=== PATIENT | female | born 1975 | race Caucasian/White ===

== ENCOUNTER 2022-02-27 08:49 | Emergency (ER) | payer OTHER, BC, SELFPAY ==
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
[2022-02-27 09:15] LABS: Basophils Absolute Auto 0.02 K/uL (0.00-0.30); Basophils Percent Auto 0.2 % (0.0-3.0); Eosinophils Absolute Auto 0.33 K/uL (0.00-0.50); Hematocrit 43.3 % (33.0-51.0); Hemoglobin* 13.9 gm/dL (12.0-16.0); Immature Granulocytes Abs Auto 0.02 K/uL (0.00-0.30); Lymphocytes Absolute Auto 2.12 K/uL (0.90-2.90); Lymphocytes Percent Auto 25.6 % (20-44); Mean Corpuscular HGB Conc 32 gm/dL (32-36); Mean Corpuscular Hemoglobin 27 pg (26-34); Mean Corpuscular Volume 84 fL (80-100); Monocytes Percent Auto 4.6 % (0.0-11.0); Neutrophils Percent Auto 65.4 % (42.0-72.0); Platelet Count* 267 K/uL (140-440); RDW Coefficient of Variation % 15.1 % (11.5-15.5); Red Blood Count 5.17 m/uL (4.00-5.20); White Blood Count* 8.27 K/uL (4.50-11.00)
[2022-02-27 09:30] LABS: Slide Review Reflex No
[2022-02-27 09:32] LABS: Chloride* 104 mmol/L (96-114); Potassium* 4.4 mmol/L (3.6-5.1); Sodium* 138 mmol/L (135-149)
[2022-02-27 09:35] LABS: Blood Urea Nitrogen* 13 mg/dL (5-24); Calcium* 9.4 mg/dL (8.4-10.6); Carbon Dioxide* 27 mmol/L (20-32); Creatinine* 0.6 mg/dL (0.5-1.5); Estimated Glomerular Filt Rate 113 ml/min; Glucose* 122 mg/dL (60-115)
[2022-02-27] MEDS: ACETAMINOPHEN 500 MG TABLET 1000 MG PO (09:40)
--- OUTSIDE RECORDS SUMMARY | 2022-02-27 09:54 | XMS_ITS | Clinical Summary ---
:1975 Author Organization [facility] [place] [address] Care Team Providers Name Role Phone Karo Gee MEDICAID ANALYST Primary Care Provider Unavailable Allergies Active Allergy Reactions Severity Noted Date Comments Insect Venom Anaphylaxis High 07/18/2016 Bee stings Sulfa (Sulfonamide Antibiotics) Rash Medications Medication Sig Dispensed Refills Start Date End Date Status TYLENOL EXTRA take 2 tablets 0 03/31/2008 Active STRENGTH 500 MG TAB (1,000 mg) by oral route every 6 hours as needed ibuprofen (ADVIL; Take 1 tablet by 0 04/17/2010 Active MOTRIN) 200 mg tablet mouth 4 times daily if needed. buPROPion (WELLBUTRIN Take 1 tablet by 0 06/05/2016 Active SR) 150 mg mouth 2 times Sustained-Release daily. tablet EPINEPHrine (EPIPEN) Inject 0.3 mg 0 Active 0.3 mg/0.3 mL intramuscular one injection time if needed for Allergic Reaction. levonorgestrel Inject 1 Device 0 Active intrauterine device intrauterine one (MIRENA) 20 mcg/24 hr time. (5 years) IUD ESOMEPRAZOLE Take by mouth. 0 Ac tive MAGNESIUM (NEXIUM ORAL) docusate (Colace) 100 Take 1 Capsule (100 20 Capsule 0 021 Active mg mg) by mouth 2 capsuleIndications: times daily if Pectoralis minor needed for syndrome (HC) Constipation. hydrOXYzine HCL Take 1 Tablet (25 40 Tablet 0 11/02/2020 Active (ATARAX) 25 mg mg) by mouth 4 tabletIndications: times daily if Pectoralis minor needed. syndrome (HC) oxyCODONE-acetaminoph Take 1-2 Tablets by 40 Tablet 0 11/03/19 21 Active en (Percocet) 5-325 mouth every 4 hours mg per if needed for Pain. tabletIndications: Maximum of 10 Pectoralis minor tablets per day syndrome (HC) HYDROcodone-acetamino Take 1 tablet by 8 Tablet 0 11/10/2020 Active phen (NORCO) 5-325 mg mouth at bedtime, per as needed for pain. tabletIndications: Max acetaminophen Surgical aftercare, dose: 4000 mg in 24 musculoskeletal hrs. system ondansetron (ZOFRAN Place 1 Tablet (4 16 Tablet 0 11/10/2020 Active ODT) 4 mg mg) on the tongue disintegrating every 8 hours if tabletIndications: needed for Surgical aftercare, Nausea/Vomiting. musculoskeletal system traMADoL (ULTRAM) 50 Take 1 Tablet (50 21 Tablet 0 02/16/2021 Active mg tabletIndications: mg) by mouth 3 Surgical aftercare, times daily if musculoskeletal needed for Pain. system Active Problems Problem Noted Date s/p right shoulder arthroscopic pectoralis minor tenot david, subacromial 12/20/2020 decompression, distal clavicle excision, DOS: 10/31/[address] 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 Filiberto cortez at [place] Tobacco use disorder 03/31/2008 Obesity, unspecified 03/30/2008 Acute cholecystitis 03/30/2008 Encounters Date Type Specialty Care Team Description 01/18/2022 Orders Only Marty Estrada 1 scan : (1-Ord) [place] ELBERT BAL MD from Last 3 Months Immunizations Name Administration Dates Next Due DTP 09/26/1979, 01/25/1978, 1975, 05[birth year]1977 MMR 12/18/1994, 11/24/1978 Oral Polio Vaccine 09/26/1979, 01/25/1978, 1977, 05/1977 Td (Age >=7 Years) 11/27/2003 Family History Medical History Relation Name Comments Diabetes Father Hyperlipidemia Mother Hypertension Mother Relation Name Status Comments Father Mother Social History Tobacco Use Types Packs/Day Years Used Date Former Smoker Cigarettes 1 Quit: 2011 Smokeless Tobacco: Never Used Tobacco Cessation: Counseling Given: Yes Alcohol Use Standard Drinks/Week Comments Yes 0 (1 standard drink = 0.6 oz pure alcoho l) maybe once/month Alcohol Habits Answer Date Recorded How often do you have a drink containing alcohol? Not asked How many drinks containing alcohol do you have on a Not aske d typical day when you are drinking? How often do you have six or more drinks on one Not asked occasion? Comment: maybe once/month 03/31/2008 Sex Assigned at Date Recorded Not on file Obstetrics History Last Filed Vital Signs Vital Sign Reading Time Taken Comments Blood Pressure 109/69 11/06/2016 1:24 PM CDT Pulse 86 11/06/2016 1:24 PM CDT Temperature 36.8 ??C (98.3 ??F) 07/25/2016 10:09 AM [employer] Respiratory Rate 16 07/23/2016 6:30 PM [employer] Oxygen Saturation 98% 11/06/2016 1:24 PM CDT Inhaled Oxygen Concentration - - Weight 115.7 kg (255 lb) 11/06/2016 1:24 PM CDT Height 172.7 cm (5' 8) 07/23/2016 11:35 AM [employer] Body Mass Index 38.77 07/23/2016 11:35 AM [employer] Plan of Treatment Health Maintenance Due Date Last Done Comments COVID-19 vaccine series (#1) 02/14/1978 Tdap 1988 Depression screening for age 12+ 1989 BMI (ht and wt on same day) for age 18+ 08/15/1995 Hepatitis C screening for age 18-79 08/15/1995 Pap test for age 21-65 1998 Tetanus booster 11/26/2013 11/27/2003 Influenza for age 9-49 01/25/2022 Medical Devices Implanted Type Area Analyst Device Shelf Model / Identifier Expiration Date Ser ial / Lot [id number] - [id number] Left: Deposit [phone] / Implanted: Qty: 1 on 07/23/2016 by Jose Walls DPM at [facility] [employer] / Description: Locking screw T7 2.7 x 22mm Procedures Procedure Name Priority Date/Time Associated Diagnosis Comme nts EMG Routine 12/21/2021 12:00 AM Weakness of right Res ults for this CDT hand procedure are i n the results section . from Last 3 Months Results EMG (12/21/2021 12:00 AM CDT) Narrative This result has an attachment that is no t available. Marty Estrada III, MD NEUROLOGY ORD from Last 3 Months Insurance Payer Benefit Plan / Subscriber ID Effective Dates Phone Addre ss Type Group WC [employer] [place] [id number] 2018-Pres [address] [facility] [address] [place] [address] [employer] [id number] 2021-Prese [id number] [place] [address] (Work) Advance Directives Latest Code Status on File Code Status Date Activated Date Inactivated Comments Full Code 07/23/2016 1:00 PM 07/23/2016 9:03 PM Code Status Discussion: Not Discussed Full Code 07/23/2016 11:21 AM 07/23/2016 1:00 PM Code Status Discussion: Not Discussed Care Teams Specification Writer Relationship Specialty Start Date End Date Karo Gee NP PCP - General Emergency Medicine 07/13/16 [id number] [place] [address]
[2022-02-27] MEDS: 0.9 % SODIUM CHLORIDE 1000 ml 1,000 ML IV (09:56)
[2022-02-27 10:05] VITALS: BP 128/82; PULSE 78; RESP 18; TEMP 36.5; O2SAT 98; BMI 39.9
[2022-02-27 10:06] LABS: Appearance Urine Slightly Cloudy (Clear); Bilirubin Urine Negative (Negative); Blood Urine Negative (Negative); Color Urine Yellow (Yellow); Glucose Urine Negative (Negative); Ketones Urine Negative (Negative); Leukocyte Esterase Urine Negative (Negative); Nitrite Urine Negative (Negative); Protein Urine Negative (Negative); Specific Gravity Urine 1.015 (1.000-1.030); Urobilinogen Urine 0.2 (0.2-1.0)
[2022-02-27 10:17] LABS: Bacteria Urine Moderate; RBC Urine 0-2 (0-2); Squamous Epithelial Cell Urine Few (None-Few); WBC Urine 0-2 (0-5)
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
== END 2022-02-27 10:30 | disposition home or self-care (01) ==
PROVIDERS: Emergency Provider Family Medicine; PCP Nurse Practitioner Family
DX: M54.2 Cervicalgia (principal); M25.511 Pain in right shoulder; V53.5XXA Driver of pick-up truck or van injured in collision with car, pick-up truck or van in traffic accident, initial encounter
CPT/HCPCS: 36415; 70450; 71260; 72125; 74177; 80048; 81001; 85025; 87086; 93005; 99285; 99291; A9270; G0390; J7030; Q9967

== ENCOUNTER 2022-05-04 08:34 | Outpatient (CLI) | payer BC, SELFPAY ==
--- OUTSIDE RECORDS SUMMARY | 2022-05-04 08:36 | XMS_ITS | Clinical Summary ---
:1975 Author Organization [employer] [facility] [place] [address] Care Team Providers Name Role Phone Karo Gee CAR SALES REPRESENTATIVE Primary Care Provider Unavailable Allergies Active Allergy [...] DOS: 07/02/[address] 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 Plan of Treatment Health Maintenance Due Date Last Done Comments COVID-19 vaccine series (#1) 02/14/1978 Tdap 1988 Depression screening for age 12+ 1989 HIV for age 15-65 1992 BMI (ht and wt on same day) for age 18+ 08/15/1995 Hepatitis C screening for age 18-79 08/15/1995 Pap test for age 21-65 1998 Tetanus booster 11/26/2013 11/27/2003 Influenza for age 9-49 01/25/2022 Medical Devices Implanted Type Area Tobacco Sizer Device Shelf Model / Identifier Expiration Date Ser ial / Lot [id number] - [id number] Left: [place] [id number] / Implanted: Qty: 1 on 07/23/2016 by Jose Walls DPM at [facility] / Description: Locking screw T7 2.7 x 22mm Results Not on filefrom Last 3 Months Insurance Payer Benefit Plan / Subscriber ID Effective Dates Phone Addre ss Type Group [employer] [place] [id number] [address] [place] [address] BLUE [employer]OSS [employer] OF [id number] 2021-[place] [id number] [facility] [place] [phone] (Work) Advance Directives Latest Code Status on File Code Status Date Activated Date Inactivated Comments Full Code 07/23/2016 1:00 PM 07/23/2016 9:03 PM Code Status Discussion: Not Discussed Full Code 07/23/2016 11:21 AM 07/23/2016 1:00 PM Code Status Discussion: Not Discussed Care Teams Quick Print Operator Relationship Specialty Start Date End Date Karo Gee CAR SALES REPRESENTATIVE PCP - General Emergency Medicine 07/13/[address] [place] [address]
--- NOTE | 2022-05-04 08:45 | CRLHL7_ITS ---
For Patients: As a result of the Cures Act, medical imaging exams and procedure reports are released immediately into your electronic medical record. You may view this report before your referring provider. If you have questions, please contact your health care provider. DIGITAL DIAGNOSTIC BILATERAL MAMMOGRAM USING TOMOSYNTHESIS AND COMPUTER-AIDED DETECTION CLINICAL HISTORY: LEFT breast six-month follow-up. COMPARISON: 10/27/2021, 04/24/2021, 04/14/2021. TECHNIQUE: Digital BILATERAL mammogram in four projections. Tomosynthesis and CAD utilized. BREAST COMPOSITION: There are areas of scattered fibroglandular density. FINDINGS: 3D CC/MLO BILATERAL mammograms submitted. Normal fibroglandular tissue. No suspicious masses or architectural distortion. No adenopathy or suspicious calcifications. IMPRESSION: Normal BILATERAL mammograms. No evidence of malignancy. RECOMMENDATIONS: Annual BILATERAL screening mammography. Results and recommendations discussed with the patient. BI-RADS Category 2: Benign A lay language report of this examination will be provided to the patient. Dictated by Diaz Fatima MD @ 05/04/2022 12:12:08 PM [email or web address]/Dictated by: Diaz Fatima MD @ 05/04/2022 12:12:00 PM (Electronically Signed)
== END 2022-05-04 08:35 | disposition home or self-care (01) ==
PROVIDERS: PCP Nurse Practitioner Family; Visit Provider Nurse Practitioner Family
DX: R92.8 Other abnormal and inconclusive findings on diagnostic imaging of breast (principal)
CPT/HCPCS: 77066; G0279

== ENCOUNTER 2022-12-21 08:36 | Outpatient (CLI) | payer BC, SELFPAY | END 2022-12-21 08:37 | disposition home or self-care (01) | PROVIDERS: PCP Nurse Practitioner Family; Visit Provider Nurse Practitioner Family | DX: E78.5 Hyperlipidemia, unspecified (principal); E11.9 Type 2 diabetes mellitus without complications; R53.83 Other fatigue; E66.9 Obesity, unspecified; E66.01 Morbid (severe) obesity due to excess calories | CPT/HCPCS: 80053; 80061; 84443 ==

== ENCOUNTER 2023-01-06 18:41 | Outpatient (CLI) | payer BC, SELFPAY ==
--- NOTE | 2023-01-23 10:20 | W.PM.SLEEP ---
Sleep Study Details Details Interpreting Provider: Subhash Date of Sleep Study: 01/06/23 Sleep Study Details: STUDY TYPE:? Home unattended ? BMI:? 44.1 ORDERING PROVIDER:Napoleon Gee INDICATION:? Concerns about sleep apnea ? SLEEP SUMMARY:? 522.5 minutes monitored RESPIRATORY SUMMARY:? AHI 32.5, supine 38.4, left and right lateral approximately 22 Low oxygen 79 70.1% of study oxygen less than 90% Snoring 35.6% PERIODIC LIMB MOVEMENTS OF SLEEP:? Not recorded during home study CARDIAC:? Ranged 61-92, mean 72.8 IMPRESSION:? Severe obstructive sleep apnea with supine position dependency and significant hypo oxygenation. RECOMMENDATION: AutoSet CPAP with close follow-up including pulse oximetry once effective therapy is established. Further cardiopulmonary evaluation may be indicated because of low oxygen saturations.
== END 2023-01-06 18:42 | disposition home or self-care (01) ==
LOC: SLEEP 18:42
PROVIDERS: PCP Nurse Practitioner Family; Visit Provider Nurse Practitioner Family
DX: G47.33 Obstructive sleep apnea (adult) (pediatric) (principal)
CPT/HCPCS: 95806

== ENCOUNTER 2023-02-26 14:34 | Outpatient (CLI) | payer BC, SELFPAY | END 2023-02-26 14:35 | disposition home or self-care (01) | LOC: LKVREF 14:34 | PROVIDERS: PCP Nurse Practitioner Family; Visit Provider Otolaryngology | DX: G25.81 Restless legs syndrome (principal) | CPT/HCPCS: 82728 ==

== ENCOUNTER 2023-03-08 08:36 | Outpatient (CLI) | payer OTHER, SELFPAY ==
--- NOTE | 2023-03-08 09:00 | CRLHL7_ITS ---
For Patients: As a result of the Cures Act, medical imaging exams and procedure reports are released immediately into your electronic medical record. You may view this report before your referring provider. If you have questions, please contact your health care provider. Indication: Neck stiffness. Migraine. Technique: CT of the cervical spine performed without IV contrast. Comparison: CT cervical spine 02/27/2022. Findings: The cervical vertebral body heights are maintained without evidence of fracture. Disc space heights demonstrate mild narrowing. Moderate reversal of the cervical lordosis. C2-3: No spinal canal or neural foraminal narrowing. C3-4: No spinal canal or neural foraminal narrowing. C4-5: No spinal canal or neural foraminal narrowing. C5-6: No spinal canal or neural foraminal narrowing. C6-7: No spinal canal or neural foraminal narrowing. C7-T1: No spinal canal or neural foraminal narrowing. The visualized lung apices are clear. No prevertebral soft tissue swelling. Impression: 1. No fracture. 2. Moderate reversal of the cervical lordosis. 3. No spinal canal or neural foraminal stenosis. Please note that all CT scans at this facility use dose modulation, iterative reconstruction, and/or weight-based dosing when appropriate to reduce radiation dose to as low as reasonably achievable. Dictated by Irineo Nicolas MD @ 03/08/2023 3:34:08 PM (Electronically Signed)
== END 2023-03-08 08:37 | disposition home or self-care (01) ==
LOC: CT 08:37
PROVIDERS: PCP Nurse Practitioner Family; Visit Provider Nurse Practitioner Family
DX: G43.909 Migraine, unspecified, not intractable, without status migrainosus (principal); M40.50 Lordosis, unspecified, site unspecified; M54.2 Cervicalgia; V89.2XXA Person injured in unspecified motor-vehicle accident, traffic, initial encounter
CPT/HCPCS: 72125

== ENCOUNTER 2023-03-29 08:31 | Outpatient (CLI) | payer BC, SELFPAY | END 2023-03-29 08:32 | disposition home or self-care (01) | LOC: KYNREF 08:31 | PROVIDERS: PCP Nurse Practitioner Family; Visit Provider Nurse Practitioner Family | DX: E78.5 Hyperlipidemia, unspecified (principal); E11.9 Type 2 diabetes mellitus without complications | CPT/HCPCS: 80061 ==

== ENCOUNTER 2023-05-01 16:30 | Emergency (ER) | payer BC, SELFPAY ==
[2023-05-01 16:38] VITALS: BP 105/71; PULSE 90; RESP 18; TEMP 36.2; O2SAT 97; BMI 39.0
--- NOTE | 2023-05-01 19:00 | CRLHL7_ITS ---
For Patients: As a result of the Century Cures Act, medical imaging exams and procedure reports are released immediately into your electronic medical record. You may view this report before your referring provider. If you have questions, please contact your health care provider. INDICATION: Left-sided abdominal pain TECHNIQUE: CT abdomen and pelvis acquired with i.v. 130 mL Isovue 370. Coronal and sagittal reformats were obtained. COMPARISON: CT study dated 07/29/2019, 02/27/2022 FINDINGS: Electronics Mechanic Apprentice CT images: Nonobstructive bowel gas pattern. Lower chest: Unremarkable. Liver: Unremarkable. Spleen: Unremarkable. Pancreas: Unremarkable. Gallbladder and bile ducts: Gallbladder surgically absent. Kidneys: Unremarkable. No kidney or ureteral stones and no hydronephrosis seen. Adrenal glands: Stable appearance of bilateral adrenal nodules. GI tract: Stomach and duodenum normal in caliber. Duodenum crosses midline. Bowel loops are normal in caliber. Terminal ileum and appendix normal, well visualized in the right lower quadrant. Colonic diverticulosis with no imaging evidence of acute diverticulitis. No interloop ascites or mesenteric fat stranding. Vascular: Unremarkable. Lymph nodes: Unremarkable. Miscellaneous: Unremarkable. No pneumoperitoneum is seen. No significant ascites is noted. Pelvic Organs: Satisfactory positioning of IUD within the endometrial canal. Bones: Unremarkable for age. IMPRESSION: 1. No acute abnormality identified. No imaging correlate to explain patient`s clinical symptoms of left-sided abdominal pain. Colonic diverticulosis with no imaging evidence of acute diverticulitis. 2. Stable bilateral adrenal nodules. Dictated by Anselmo Bender MD @ 05/01/2023 8:36:13 PM Please note that all CT scans at this facility use dose modulation, iterative reconstruction, and/or weight-based dosing when appropriate to reduce radiation dose to as low as reasonably achievable. Dictated by: Anselmo Bender MD @ 05/01/2023 20:36:18 (Electronically Signed)
--- NOTE | 2023-05-01 19:01 | ED.ABDPAIN ---
HPI - Abdominal Pain General Chief Complaint: Abdominal Pain Stated Complaint: vomiting, diarrhea Time Seen by Provider: 05/01/23 18:37 History of Present Illness HPI narrative: This 47-year-old female comes in reporting left-sided abdominal pain this located in the upper left abdomen and left flank. She states that this started about 5 hours prior to arrival. She states that it is a rather constant pain but the pain has eased recently. She had some associated nausea and diarrhea. She does not report any fevers or dysuria symptoms. She states that she has a history of diverticulitis but states that this does not feel exactly the same. She does not have any personal history of kidney stones but states there is a family history of them. Related Data Home Medications Medication Instructions Recorded Confirmed levonorgestrel 21 mcg/24 hours (8 1 device intrauterine ONCE 02/09/22 04/23/23 yrs) 52 mg intrauterine device (Mirena) omeprazole 20 mg capsule,delayed 20 mg PO DAILY 02/09/22 04/23/23 release Previous Rx's Medication Instructions Recorded sumatriptan succinate 100 mg See Rx Instructions PO .COMPLEX 30 12/21/22 tablet (Imitrex) days #9 tabs atorvastatin 20 mg tablet (Lipitor) 20 mg PO QHS 90 days #90 tabs 12/25/22 blood sugar diagnostic (Accu-Chek #100 ea 12/25/22 Lizette Plus test strips) blood-glucose meter (Accu-Chek #1 ea 12/25/22 Lizette Plus Meter) lancets (Accu-Chek Fastclix Lancet #100 ea 12/25/22 Drum) lisinopril 2.5 mg tablet 2.5 mg PO QDAY 90 days #90 tabs 12/25/22 metformin 500 mg tablet,extended 500 mg PO QDAY 90 days #90 tabs 12/25/22 release 24 hr cyclobenzaprine 5 mg tablet 5 mg PO TID PRN muscle spasm #30 03/01/23 tabs citalopram 40 mg tablet 40 mg PO QDAY 90 days #90 tabs 03/14/23 fjjsbbfe-aycqtuggf-ckqafugsf 3.5 4 drp otic (ear) Q8H 10 days #10 mL 03/29/23 mg-10,000 unit/mL-1 % ear drops,susp tirzepatide 7.5 mg/0.5 mL 7.5 mg (0.5 mL) subcut QWEEK 90 03/29/23 subcutaneous pen injector days #6.5 mL atorvastatin 40 mg tablet (Lipitor) 40 mg PO QHS #90 tabs 04/01/23 Allergies Allergy/AdvReac Type Severity Reaction Status Date / Time Sulfa (Sulfonamide Allergy Verified 04/23/23 14:43 Antibiotics) venom-honey bee Allergy Verified 04/23/23 14:43 Review of Systems Status of ROS Reports: 10 or more systems reviewed and unremarkable except as noted in History and below Narrative Constitutional: No fevers, no weight gain or loss. Eyes: No discharge. No vision changes. HENT: No congestion, no sore throat, no ear pain. Cardiovascular: No chest pain, no palpitations. Respiratory: No shortness of breath, no wheezes, no cough. Gastrointestinal: Abdominal pain and diarrhea as described above. Genitourinary: No dysuria, no hematuria. Musculoskeletal: Normal range of motion. Skin: No rashes, no pruritis. Neurological: No dizziness, weakness, sensory change, speech change. Endo/Heme/Allergies: No bruising or bleeding. No polydipsia. Pysch: no suicidality, no anxiety, no insomnia. All other systems reviewed and are negative. [facility] Medical History (Updated 05/01/23 @ 20:47 by Jared Streeter MD) Strep pharyngitis ?J02.0 - Streptococcal pharyngitis (ICD-10) Bronchitis ?J40 - Bronchitis, not specified as acute or chronic (ICD-10) Gestational diabetes ?O24.419 - Gestational diabetes mellitus in , unspecified control (ICD-10) Obesity ?E66.9 - Obesity, unspecified (ICD-10) Varicella ?B01.9 - Varicella without complication (ICD-10) Posttraumatic stress disorder ?F43.10 - Post-traumatic stress disorder, unspecified (ICD-10) History of gestational diabetes mellitus (GDM) ?Z86.32 - Personal history of gestational diabetes (ICD-10) Gastroesophageal reflux disease ?K21.9 - Gastro-esophageal reflux disease without esophagitis (ICD-10) Diverticulitis ?K57.92 - Diverticulitis of intestine, part unspecified, without perforation or abscess without bleeding (ICD-10) Depression ?F32.A - Depression, unspecified (ICD-10) Surgical History (Updated 09/28/22 @ 08:42 by Karo Gee APRN, PINSETTER MECHANIC HELPER) H/O eye surgery ?Z98.890 - Other specified postprocedural states (ICD-10) History of tonsillectomy ?Z90.89 - Acquired absence of other organs (ICD-10) History of repair of right rotator cuff ?Z98.890 - Other specified postprocedural states (ICD-10) History of joint replacement ?Z96.60 - Presence of unspecified orthopedic joint implant (ICD-10) History of hand surgery ?Z98.890 - Other specified postprocedural states (ICD-10) History of foot surgery ?Z98.890 - Other specified postprocedural states (ICD-10) History of cholecystectomy ?Z90.49 - Acquired absence of other specified parts of digestive tract (ICD-10) History of section ?Z98.891 - History of uterine scar from previous surgery (ICD-10) History of carpal tunnel surgery of right wrist ?Z98.890 - Other specified postprocedural states (ICD-10) History of bunionectomy ?Z98.890 - Other specified postprocedural states (ICD-10) Family History (Updated 08/10/22 @ 08:49 by Karo Gee APRN, PINSETTER MECHANIC HELPER) Father Glaucoma Heart disease Kidney disease Diabetes Brother Heart disease Mother Hyperlipidemia High blood pressure Breast cancer Maternal Grandmother Lung cancer Smoker Social History (Updated 08/10/22 @ 08:50 by Karo Gee APRN, PINSETTER MECHANIC HELPER) Narrative: . One child. No illicit drugs. No smoking. Alcohol rare. Work for [employer]. Smoking Status: Unknown if ever smoked Do you use any of these nicotine containing products: None How often do you have a drink containing alcohol: monthly or less How often do you have six or more drinks on one occasion: Never AUDIT-C Alcohol total score: 1 Non-prescribed substance use: denies use Little interest or pleasure in doing things: several days Feeling down, depressed, or hopeless: several days Exam Narrative: Exam Narrative: Constitutional: Well-developed, well-nourished, no acute distress. HEENT: Normocephalic, atraumatic. Neck: Normal range of motion. Nontender. Supple. Heart: Regular. No murmurs. Normal rate. Intact distal pulses. Lungs: Clear to auscultation. No chest discomfort. No wheezes, rhonchi, or rales. Abdomen: Left-sided abdominal pain that is diffuse. No rebound tenderness. Bowel sounds are normal. Genitalia: Deferred. Back: No midline tenderness. Normal range of motion. Extremities: Normal range of motion. No injury. Skin: Intact. No rash. Warm. No erythema or pallor. Neurologic: No altered sensation. No weakness. Alert and oriented. Psychiatric: No suicidality. No anxiety or depression. No insomnia. Nursing notes and vitals signs are reviewed. Const: Vital Signs, click to edit/add: Vital Signs - 24 hr 05/01/23 16:38 Temperature 97.1 F L Pulse Rate [Pulse Oximeter] 90 Respiratory Rate 18 Blood Pressure [Ri ght Upper Arm] 105/71 Pulse Oximetry 97 Oxygen Delivery Me thod Room Air Course Vital Signs Vital signs: Initial Vital Signs Temperature 97.1 F L 05/01/23 16:38 Temperature Source Temporal Artery Scan 05/01/23 16:38 Pulse Rate 90 05/01/23 16:38 Respiratory Rate 18 05/01/23 16:38 Blood Pressure 105/71 05/01/23 16:38 Blood Pressure Mean 82 05/01/23 16:38 Pulse Oximetry 97 05/01/23 16:38 Oxygen Delivery Method Room Air 05/01/23 16:38 Vital Signs Temperature 97.1 F L 05/01/23 16:38 Pulse Rate 90 05/01/23 16:38 Respiratory Rate 18 05/01/23 16:38 Blood Pressure 105/71 05/01/23 16:38 Pulse Oximetry 97 05/01/23 16:38 Oxygen Delivery Method Room Air 05/01/23 16:38 Temperature 97.1 F L 05/01/23 16:38 Pulse Rate 90 05/01/23 16:38 Respiratory Rate 18 05/01/23 16:38 Blood Pressure 105/71 05/01/23 16:38 Pulse Oximetry 97 05/01/23 16:38 Oxygen Delivery Method Room Air 05/01/23 16:38 MDM - Abdominal Pain MDM Narrative Medical decision making narrative: This patient comes in with abdominal pain, nausea, vomiting, and diarrhea as described above. She states that she is feeling better and her pain has diminished. She does report a history of diverticulitis and would like to have a CT scan to rule out something more serious. An IV was established and labs are acquired. Her white count is a bit elevated at around 14,000 but she has normal vital signs. Additionally her CT imaging shows no acute findings to explain her symptoms. It seems that she may be encountering a gastroenteritis. She is okay to be discharged home and received a prescription for Zofran. Lab Data Labs: Lab Results 05/01/23 Range/Units 19:15 WBC 14.83 H (4.50-11.00) K/uL RBC 5.70 H (4.00-5.20) m/uL Hgb 15.5 (12.0-16.0) gm/dL Hct 48.6 (33.0-51.0) % MCV 85 (80-100) fL MCH 27 (26-34) pg MCHC 32 (32-36) gm/dL RDW Coeff of Clover 14.8 (11.5-15.5) % Plt Count 331 (140-440) K/uL Neut % (Auto) 85.3 H (42.0-72.0) % Lymph % (Auto) 8.8 L (20-44) % Ogle % (Auto) 3.3 (0.0-11.0) % Eos % (Auto) 2.4 (0.0-7.0) % Baso % (Auto) 0.1 (0.0-3.0) % Neut # (Auto) 12.60 H (1.7-7.0) K/uL Lymph # (Auto) 1.30 (0.90-2.90) K/uL Ogle # (Auto) 0.50 (0.00-0.90) K/UL Eos # (Auto) 0.40 (0.00-0.50) K/uL Baso # (Auto) 0.00 (0.00-0.30) K/uL Abs Immat Gran (auto) 0.00 (0.00-0.30) K/uL Imm/Tot Granulo (auto) 0.1 % Sodium 140 (135-149) mmol/L Potassium 3.9 (3.6-5.1) mmol/L Chloride 107 (96-114) mmol/L Carbon Dioxide 25 (20-32) mmol/L Anion Gap 8 (7-15) mEq/L BUN 18 (5-24) mg/dL Creatinine 0.7 (0.5-1.5) mg/dL Estimated Creat Clear 106.06 Estimated GFR 109 ml/min Glucose 104 (60-115) mg/dL Calcium 9.5 (8.4-10.6) mg/dL Imaging Data CT scan - abdomen: Radiologist's impression: 1. No acute abnormality identified. No imaging correlate to explain patient`s clinical symptoms of left-sided abdominal pain. Colonic diverticulosis with no imaging evidence of acute diverticulitis. 2. Stable bilateral adrenal nodules. Discharge Plan Discharge Clinical Impression: Gastroenteritis Patient Disposition: Home, Self-Care Condition: Stable Additional Instructions: Take medication as needed and directed. Frequent sips of fluids. Increase diet as tolerated. Prescriptions: No Action omeprazole 20 mg capsule,delayed release(DR/EC) 20 mg PO DAILY Mirena 20 mcg/24 hours (7 yrs) 52 mg intrauterine device 1 device intrauterine ONCE Rx Instructions: as a single dose cyclobenzaprine 5 mg tablet 5 mg PO TID PRN (Reason: muscle spasm) Qty: 30 1RF sumatriptan succinate [Imitrex] 100 mg tablet See Rx Instructions PO .COMPLEX 30 Days Qty: 9 11RF Rx Instructions: take 1 tab at onset of headache; if no relief, may repeat 1 tab after at least 2 hrs; max = 2 tabs/24 hrs PO (DME) blood-glucose meter [Accu-Chek Lizette Plus Meter] Misc See Rx Instructions .Route Qty: 1 0RF Rx Instructions: once daily (DME) lancets [Accu-Chek Fastclix Lancet Drum] Misc See Rx Instructions .Route Qty: 100 6RF Rx Instructions: daily (DME) Accu-Chek Lizette Plus test strp Strip See Rx Instructions .Route Qty: 100 6RF Rx Instructions: daily atorvastatin [Lipitor] 20 mg tablet 20 mg PO QHS 90 Days Qty: 90 3RF metformin 500 mg tablet extended release 24 hr 500 mg PO QDAY 90 Days Qty: 90 3RF lisinopril 2.5 mg tablet 2.5 mg PO QDAY 90 Days Qty: 90 3RF tirzepatide 7.5 mg/0.5 mL pen injector 7.5 mg subcut QWEEK 90 Days Qty: 6.5 3RF csgsnizg-sswhearlc-QM 3.5-10,000-1 mg/mL-unit/mL-% drops,suspension 4 drp otic (ear) Q8H 10 Days Qty: 10 1RF citalopram 40 mg tablet 40 mg PO QDAY 90 Days Qty: 90 0RF atorvastatin [Lipitor] 40 mg tablet 40 mg PO QHS Qty: 90 3RF Follow Up/Referrals: Karo Gee, ELECTRICAL INTERN, PINSETTER MECHANIC HELPER [Primary Care Provider] - Stand Alone Forms: MyHealth Info Instructions
[2023-05-01 19:22] LABS: Basophils Percent Auto 0.1 % (0.0-3.0); Eosinophils Percent Auto 2.4 % (0.0-7.0); Hematocrit 48.6 % (33.0-51.0); Hemoglobin* 15.5 gm/dL (12.0-16.0); Immature Granulocytes Pct Auto 0.1 %; Lymphocytes Percent Auto 8.8 % (20-44); Mean Corpuscular HGB Conc 32 gm/dL (32-36); Mean Corpuscular Hemoglobin 27 pg (26-34); Mean Corpuscular Volume 85 fL (80-100); Monocytes Percent Auto 3.3 % (0.0-11.0); Neutrophils Percent Auto 85.3 % (42.0-72.0); Platelet Count* 331 K/uL (140-440); RDW Coefficient of Variation % 14.8 % (11.5-15.5); White Blood Count* 14.83 K/uL (4.50-11.00)
[2023-05-01 19:23] LABS: Slide Review Reflex No
[2023-05-01 19:37] LABS: Chloride* 107 mmol/L (96-114); Potassium* 3.9 mmol/L (3.6-5.1); Sodium* 140 mmol/L (135-149)
[2023-05-01 19:40] LABS: Anion Gap 8 mEq/L (7-15); Blood Urea Nitrogen* 18 mg/dL (5-24); Calcium* 9.5 mg/dL (8.4-10.6); Carbon Dioxide* 25 mmol/L (20-32); Creatinine* 0.7 mg/dL (0.5-1.5); Est. Creatinine Clearance* 106.06; Estimated Glomerular Filt Rate 109 ml/min; Glucose* 104 mg/dL (60-115)
[2023-05-01 20:58] VITALS: BP 110/77; PULSE 91; RESP 16; O2SAT 95
== END 2023-05-01 21:00 | disposition home or self-care (01) ==
PROVIDERS: Emergency Provider Emergency Medicine Emergency Medical Services; PCP Nurse Practitioner Family
DX: K52.9 Noninfective gastroenteritis and colitis, unspecified (principal)
CPT/HCPCS: 36415; 74177; 80048; 85025; 99283; 99284; Q9967

== ENCOUNTER 2023-06-28 09:11 | Outpatient (CLI) | payer BC, SELFPAY ==
--- NOTE | 2023-06-28 09:15 | CRLHL7_ITS ---
For Patients: As a result of the Century Cures Act, medical imaging exams and procedure reports are released immediately into your electronic medical record. You may view this report before your referring provider. If you have questions, please contact your health care provider. BILATERAL SCREENING MAMMOGRAM WITH COMPUTER-AIDED DETECTION AND TOMOSYNTHESIS TECHNIQUE: CC and MLO views were obtained. These mammographic images have been obtained using full-field digital technique. These mammographic images were interpreted with the benefit of computer-aided detection. Breast Tomosynthesis was used in this interpretation. COMPARISON FILM: 05/04/22, 04/14/21. FINDINGS: There are scattered areas of fibroglandular density. IMPRESSION: There is no radiographic evidence for malignancy. ASSESSMENT: BI-RADS Category 1: Negative RECOMMENDATION: Routine screening mammogram in 1 year. A lay language report of this examination will be provided to the patient. Diaz Fatima M.D. Diagnostic Radiologist [email or web address] SP/Dictated by: Diaz Fatima MD @ 06/28/2023 10:51:00 AM (Electronically Signed)
--- OUTSIDE RECORDS SUMMARY | 2023-06-28 09:18 | XMS_ITS | Clinical Summary ---
Author Name Unknown Organization [employer] [facility] Address [place], [place] [address] Care Team Providers Care Burring Wheel Operator Name Role Phone Karo Gee JUKE BOX MECHANIC Primary Care Provider Milli vailable Allergies Active Allergy Reactions Criticality Noted Date Comments Insect Venom Anaphylaxis High 07/18/2016 Bee stings Sulfa (Sulfonamide Antibiotics) Rash Medications Medication Sig Dispensed Refills Start Date End Date Status TYLENOL EXTRA STRENGTH 500 MG TAB take 2 tablets (1,000 mg) by oral route every 6 hours as needed 0 03/31/2008 Active ibuprofen (ADVIL; MOTRIN) 200 mg tablet Take 1 tablet by mouth 4 times daily if needed. 0 04/17/2010 Active buPROPion (WELLBUTRIN SR) 150 mg Sustained-Release tablet Take 1 tablet by mouth 2 times daily. 0 06/05/2016 Active EPINEPHrine (EPIPEN) 0.3 mg/0.3 mL injection Inject 0.3 mg intramuscular one time if needed for Allergic Reaction. 0 Active levonorgestrel intrauterine device (MIRENA) 20 mcg/24 hr (5 years) IUD Inject 1 Device intrauterine one time. 0 Active ESOMEPRAZOLE MAGNESIUM (NEXIUM ORAL) Take by mouth. 0 Active docusate (Colace) 100 mg capsuleIndications:P ectoralis minor syndrome (HC) Take 1 Capsule (100 mg) by mouth 2 times daily if needed for Constipation. 20 Capsule 0 11/02/2020 Active hydrOXYzine HCL (ATARAX) 25 mg tabletIndications:Pe ctoralis minor syndrome (HC) Take 1 Tablet (25 mg) by mouth 4 times daily if needed. 40 Tablet 0 11/02/2020 Active oxyCODONE-acetaminop hen (Percocet) 5-325 mg per tabletIndications:Pe ctoralis minor syndrome (HC) Take 1-2 Tablets by mouth every 4 hours if needed for Pain. Maximum of 10 tablets per day 40 Tablet 0 11/02/2020 Active HYDROcodone-acetamin ophen (NORCO) 5-325 mg per tabletIndications:Fonseca rgical aftercare, musculoskeletal system Take 1 tablet by mouth at bedtime, as needed for pain. Max acetaminophen dose: 4000 mg in 24 hrs. 8 Tablet 0 11/10/2020 Active ondansetron (ZOFRAN ODT) 4 mg disintegrating tabletIndications:Fonseca rgical aftercare, musculoskeletal system Place 1 Tablet (4 mg) on the tongue every 8 hours if needed for Nausea/Vomiting. 16 Tablet 0 11/10/2020 Active traMADoL (ULTRAM) 50 mg tabletIndications:Fonseca rgical aftercare, musculoskeletal system Take 1 Tablet (50 mg) by mouth 3 times daily if needed for Pain. 21 Tablet 0 02/16/2021 Active Active Problems Problem Noted Date Diagnosed Date s/p right shoulder arthrosco pic pectoralis minor tenotomy, subacromial decompression, distal clavicle excision, DOS: 10/31/[address] 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 Capellan at [facility] 03/11/2020 Tobacco use disorder 03/31/2008 Obesity, unspecified 03/30/2008 Acute cholecystitis 03/30/2008 Encounters Date Type Department Care Team Description 04/01/2023 Lab Requisition [facility] [phone] Karo Gee JUKE BOX MECHANIC from Last 3 Months Immunizations Name Administration Dates Next Due DTP 09/26/1979,01/25/1978,1977 ,1977 MMR 12/18/1994,11/24/1978 Oral Polio Vaccine 09/26/1979,01/25/1978, 978,1977 Td (Age >=7 Years) 11/27/2003 Family History Medical History Relation Name Comments Diabetes Father Hyperlipidemia Mother Hypertension Mother Relation Name Status Comments Father Mother Social History Tobacco Use Types Packs/Day Years Used Date Smoking Tobacco: Former Cigarettes Q uit: 2012 Smokeless Tobacco: Never Tobacco Cessation:Counseling Given: Yes Alcohol Use Standard Drinks/Week Comments Yes 0 (1 standard drink = 0.6 oz pur e alcohol) maybe once/month Social Connections Answer Date Recorded Frequency of Communication with Friends and Fami ly Not on file 05/27/2021 Financial Resource Strain Answer Date R ecorded Difficulty of Paying Living Expenses Not on file 05/27/2021 Difficulty of Paying Living Expenses Not on file 05/27/2021 Sex and Gender Information Value Date Recorded Sex Assigned at Not on file Gender Identity Not on file Sexual Orientation Not on file Obstetrics History Last Filed Vital Signs Vital Sign Reading Time Taken Comments Blood Pressure 109/69 11/06/2016 1:24 PM CDT Pulse 86 11/06/2016 1:24 PM CDT Temperature 36.8 ??C (98.3 ??F) 07/25/2016 10:[address] Respiratory Rate 16 07/23/2016 6:30 PM LEATHER CUTTER Oxygen Saturation 98% 11/06/2016 1:24 PM CDT Inhaled Oxygen Concentration - - Weight 115.7 kg (255 lb) 11/06/2016 1:24 PM CDT Height 172.7 cm (5' 8) 07/23/2016 11:35 AM LEATHER CUTTER Body Mass Index 38.77 07/23/2016 11:35 AM LEATHER CUTTER Plan of Treatment Health Maintenance Due Date Last Done Comments COVID-19 vaccine series (#1) 02/14/1978 Tdap 1988 Depression screening for age 12+ 1989 HIV for age 15-65 1992 BMI (ht and wt on same day) for age 18+ 08/15/1995 Hepatitis C screening for ag e 18-79 08/15/1995 Tetanus booster 11/26/2013 11/27/2003 Colonoscopy through age 75 2022 Lipids for age 45-75 2022 Mammogram for age 45-75 2022 Influenza for age 9-49 01/25/2023 Pap test for age 21-65 03/29/2026 3, 03/29/2023 Pneumococcal series for age 6-64 Aged Out No longer eligible b ased on patient's age to complete this topic Medical Devices Implanted Type Area Food Service Order Clerk Device Identifier Shelf Expiration Date Model / Serial / Lot [id number] - [id number] Implanted:Qty: 1 on 07/23/2016 by Jose Bailey DPM at [facility] Explanted:at [facility] (Quantity not on file) Left: Foot 02/21/2018 / / [id number] Description:2.5cc FOAM PACK VITOSS BB TRAUMA [id number] - [id number] Implanted:Qty: 1 on 07/23/2016 by Jose Bailey DPM at [facility] Left: Foot [employer] [id number] / / Description:HEADLESS SEAN ABDI SCREW 4.0MM/L36MM [id number] - [id number] Implanted:Qty: 1 on 07/23/2016 by Jose Bailey DPM at [facility] Left: Foot [employer] [id number] / / Description:T plate [id number] - [id number] Implanted:Qty: 1 on 07/23/2016 by Jose Bailey DPM at [facility] Left: Foot [employer] [id number] / / Description:Locking screw T7 2.7 x 16mm [id number] - [id number] Implanted:Qty: 1 on 07/23/2016 by Jose Bailey DPM at [facility] Left: Foot [employer] [id number] / / Description:Locking screw T7 2.7 x 20mm [id number] - [id number] Implanted:Qty: 1 on 07/23/2016 by Jose Bailey DPM at [facility] Left: Foot [employer] [id number] / / Description:Locking screw T7 2.7 x 1.8mm [id number] - [id number] Implanted:Qty: 1 on 07/23/2016 by Jose Bailey DPM at [facility] Left: Foot [employer] [id number] / / Description:Locking screw T7 2.7 x 22mm Procedures Procedure Name Priority Date/Time Associated Diagnosis Comments LAB TRACKING EVENT Routine 03/29/2023 9: 01 AM CDT STRUCTURAL STEEL ENGINEER THIN PREP PAP SCREEN IMAGED Routine 03/29/2023 9:01 AM CDT HPV THIN PREP Routine 03/29/2023 9:01 AM CDT from Last 3 Months Results * LAB TRACKING EVENT (03/29/2023 9:01 AM CDT) Other (Other) Client Collect / Unknown 03/29/2023 9:01 AM CDT 04/01/2023 1:43 PM LEATHER CUTTER Karo Gee NP LAB BILL ONLY [facility] [address] [place] [address], * (ABNORMAL) STRUCTURAL STEEL ENGINEER THIN PREP PAP SCREEN IMAGED (03/29/2023 9:01 AM CDT) Case Report Gynecologic Cytology Report ? Case: [id number] ? Authorizing Provider: ??Karo Gee NP ?Collected: ? 03/29/2023 0901 ? Ordering Location: ? [facility] ?Received: ?04/01/2023 1719 ? First Screen: ?Nehal Baca ? Pathologist: ? Colt Green Jr., ? MD ? Specimen: ?STRUCTURAL STEEL ENGINEER ThinPrep Vial Screening, Cervical/Vagina l ? 04/08/2023 3:44 PM [facility] INTERPRETATION/ RESULT ATYPICAL SQUAMOUS CELLS OF UNDETERMINED SIGNIFICANCE (ASCUS)(A) (none) 04/08/2023 3:44 PM [facility] IMEN ADEQUACY Satisfactory for evaluation No endocervical component seen 04/08/2023 3:44 PM [facility] HPV REQUEST HPV and PAP 04/08/2023 3:44 PM [facility] Date of LMP 04/08/2023 3:44 PM [facility] Comment:unknown Last Pap Date 04/08/2023 3:44 PM [facility] Comment:uncertain Last Pap Result NIL 3:44 PM [facility] Menstrual Status Hormonally Suppressed 04/08/2023 3:44 PM [facility] Additional Information 04/08/2023 3:44 PM [facility] Comment: Interpreted at [facility] - [address] [place] [address]. [facility] [address], [place] [address] Automated Review Successful 04/08/2023 3:[address] [facility] Comment:Specimen processed s uccessfully by automated community facilitator device, ThinPrep Imaging System, [employer] ANCILLARY TESTING STRUCTURAL STEEL ENGINEER HPV Ordered, Please see separate report 04/08/2023 3:[address] [facility] Note The pap test is a screening technique, not a diagnostic procedure. It is used primarily to screen for squamous cancers and precursor lesions. Published studies have shown that it is subject to both false negative and false positive results. The pap test should not be used as the sole means to diagnose or exclude pre-malignant and malignant lesions. 04/08/2023 3:[address] [facility] Other (Cervical/Vagina l) 03/29/2023 9:01 AM CDT 04/01/2023 5:19 PM LEATHER CUTTER Karo Gee NP PATHOLOGY/CYTOLOGY [facility] [address] * HPV HIGH RISK (03/29/2023 9:01 AM CDT) TYPE 16 Negative Negative 04/03/2023 5:05 PM LEATHER CUTTER [facility] TYPE 18 Negative Negative 04/03/2023 5:05 PM LEATHER CUTTER [facility] OTHER HIGH RISK TYPES Negative Negative 04/03/2023 5:05 PM LEATHER CUTTER [facility] Other (Cervical/Vagina l) 03/29/2023 9:01 AM CDT 04/01/2023 5:20 PM LEATHER CUTTER Narrative [facility] - 04/03/2023 5:05 PM LEATHER CUTTER HPV types 16, 18, 31, 33, 35, 39, 45, 51, 52, 56, 58, 59, 66 and 68 DNA were undetectable or below the pre-set threshold. Methodology: Melquiades Jai 4800 HPV Test Karo Gee NP MICROBIOLOGY [facility] [address] [place] [address], from Last 3 Months Advance Directives Latest Code Status on File Code Status Date Activated Date Inactivated Comments Full Code 07/23/2016 1:00 PM 07/23/2016 9:03 PM Question Answer Comments Code Status Discussion: Not Discussed Code Status History Code Status Date Activated Date Inactivated Comments Full Code 07/23/2016 11:21 AM 07/23/2016 1:00 PM Question Answer Comments Code Status Discussion: Not Discussed Care Teams Burring Wheel Operator Relationship Specialty Start Date End Date Karo Gee NP [address] [place] [address] PCP - General Emergency Medicine 07/13/16
== END 2023-06-28 09:12 | disposition home or self-care (01) ==
LOC: MAMMO 09:11
PROVIDERS: PCP Nurse Practitioner Family; Visit Provider Nurse Practitioner Family
DX: Z12.31 Encounter for screening mammogram for malignant neoplasm of breast (principal)
CPT/HCPCS: 77063; 77067

== ENCOUNTER 2024-10-05 08:26 | Outpatient (CLI) | payer BC, SELFPAY | END 2024-10-05 08:27 | disposition home or self-care (01) | PROVIDERS: PCP Nurse Practitioner Family; Visit Provider Nurse Practitioner Family | DX: Z00.01 Encounter for general adult medical examination with abnormal findings (principal); E78.5 Hyperlipidemia, unspecified; E11.9 Type 2 diabetes mellitus without complications; F41.8 Other specified anxiety disorders; R20.2 Paresthesia of skin; Z79.84 Long term (current) use of oral hypoglycemic drugs | CPT/HCPCS: 80053; 80061; 82043; 82570; 82607; 84443 ==

== ENCOUNTER 2025-01-18 14:50 | Outpatient (CLI) | payer BC, SELFPAY ==
--- NOTE | 2025-01-18 15:00 | CRLHL7_ITS ---
For Patients: As a result of the Century Cures Act, medical imaging exams and procedure reports are released immediately into your electronic medical record. You may view this report before your referring provider. If you have questions, please contact your health care provider. INDICATION: BILATERAL SCREEING MAMMOGRAM, ASYMPTOMATIC 49 Y/O FEMALE COMPARISON: 06/28/2023, 05/04/2022, 04/14/2021 TECHNIQUE: Digital mammogram in CC and MLO projections including computer-aided detection (CAD) and tomosynthesis. BREAST COMPOSITION: The breasts are almost entirely fatty. FINDINGS: No suspicious findings. ASSESSMENT: BI-RADS 1 Negative RECOMMENDATION: Annual screening mammogram. A lay language report of this examination will be provided to the patient. Dictated by: Diaz Fatima MD @ 01/19/2025 09:09:39 (Electronically Signed)
== END 2025-01-18 14:51 | disposition home or self-care (01) ==
LOC: MAMMO 14:54
PROVIDERS: PCP Nurse Practitioner Family; Visit Provider Nurse Practitioner Family
DX: Z12.31 Encounter for screening mammogram for malignant neoplasm of breast (principal)
CPT/HCPCS: 77063; 77067

== ENCOUNTER 2025-01-19 08:10 | Outpatient (CLI) | payer BC, SELFPAY | END 2025-01-19 08:11 | disposition home or self-care (01) | PROVIDERS: PCP Nurse Practitioner Family; Visit Provider Nurse Practitioner Family | DX: M54.50 Low back pain, unspecified (principal); R82.90 Unspecified abnormal findings in urine | CPT/HCPCS: 80048; 81001; 85025; 87086 ==